=== PATIENT | male | born 1950 | race African-American/Black ===

== ENCOUNTER 2017-01-19 13:55 | Emergency (ER) | payer MEDICARE ==
[~2017-01-19] VITALS: Ht 172.7 cm; Wt 100.0 kg
[~2017-01-19 13:55] MED LIST: ASPIR-LOW81 MG PO; FISH OIL500 MG PO; FLOMAX 0.40.4 MG/CAP PO; PERCOCET 325 MG1 TA2 PO
[2017-01-19 14:04] VITALS: TEMP 99.6
[2017-01-19] MEDS ORDERED: ZITHROMAX 250M250 MG PO (16:36)
[2017-01-19 16:39] LABS: INFLUENZA B NEGATIVE
[2017-01-19 17:27] VITALS: BP 145/86; PULSE 93
== END 2017-01-19 17:27 | disposition home or self-care (01) ==
LOC: COL.ER 13:55
PROVIDERS: Emergency Medicine
DX: R05 Cough (principal); R00.0 Tachycardia, unspecified; R91.8 Other nonspecific abnormal finding of lung field
CPT/HCPCS: J7040

== ENCOUNTER 2018-04-01 11:43 | Emergency (ER) | payer MEDICARE ==
[~2018-04-01] VITALS: Ht 172.7 cm; Wt 93.2 kg
[~2018-04-01 11:43] MED LIST changes: +ZITHROMAX 250M250 MG PO
[2018-04-01 12:26] LABS: BASO % 0.4 % (0.0-2.0); EOS # 0.1 (0.0-0.7); EOS % 1.3 % (0-4.0); GRAN # 3.9 (1.4-6.5); GRAN % 74.9 % (42.2-75.2); HEMATOCRIT 38.1 % (42.0-52.0); HEMOGLOBIN 12.4 g/dl (13.5-18.0); LYMPH # 0.7 (1.2-3.4); LYMPH % 13.1 % (20.0-51.0); MEAN CELL VOLUME 87 fl (80.0-100.0); MEAN CORPUSCULAR HEMOGLOBIN 28 pg (27.0-31.0); MEAN CORPUSCULAR HGB CONC 33 g/dl (33.0-37.0); MEAN PLATELET VOLUME 9.1 fl (7.4-10.4); MONO # 0.5 (0.1-0.6); MONO % 10.1 % (1.7-9.3); PLATELET COUNT 295 K/mm3 (130-400); RED BLOOD COUNT 4.37 M/mm3 (4.20-5.60); REDCELL DISTRIBUTION WIDTH-CV 14.9 % (11.5-14.5)
[2018-04-01 12:35] LABS: PROTHROMBIN TIME 11.9 SECONDS (9.7-12.8)
[2018-04-01 12:42] LABS: ALBUMIN 3.4 gm/dL (3.5-5.0); BILIRUBIN,TOTAL 0.8 mg/dL (0.0-1.0); C-REACTIVE PROTEIN 0.6 mg/dL (0.0-0.9); CALCIUM 8.9 mg/dL (8.4-10.2); CREATININE, serum 0.92 mg/dL (0.66-1.25); POTASSIUM 3.9 mmol/L (3.4-5.0); TOTAL PROTEIN 9.2 gm/dL (6.4-8.2)
[2018-04-01] MEDS ORDERED: TYLENOL 325MG325 MG PO (12:50)
[2018-04-01] MEDS ORDERED: STAY AWAKE200 MG PO (12:51)
[2018-04-01] MEDS ORDERED: MEDROL 4MG DOSPA4 MG PO (13:46)
[2018-04-01 14:50] VITALS: BP 111/79; PULSE 81; TEMP 97.6
== END 2018-04-01 14:24 | disposition home or self-care (01) ==
LOC: COL.ER 11:43
PROVIDERS: Family Medicine
DX: S80.11XA Contusion of right lower leg, initial encounter (principal); M50.30 Other cervical disc degeneration, unspecified cervical region; Z79.82 Long term (current) use of aspirin; W07.XXXA Fall from chair, initial encounter; W22.8XXA Striking against or struck by other objects, initial encounter